=== PATIENT | male | born 1975 | race Caucasian/White ===

== ENCOUNTER 2017-12-29 14:50 | Emergency (ER) | payer MEDICAID ==
[~2017-12-29] VITALS: Ht 175.3 cm; Wt 86.2 kg
[2017-12-29 14:55] VITALS: BP_SYST 128
[2017-12-29] MEDS ORDERED: NACL 0.9% 1,000 ML IV ONE (15:08)
[2017-12-29] MEDS ORDERED: ONDANSETRON HCL 4 MG/2 ML VIAL IVP ONE (15:15)
[2017-12-29 15:57] LABS: BASOPHILS % (AUTO) 0.6 % (0.0-2.0); EOSINOPHILS # (AUTO) 0.2 K/uL (0.0-0.4); HEMATOCRIT 46.1 % (36-54); HEMOGLOBIN 16.3 g/dL (14.0-18.0); LYMPHOCYTES # (AUTO) 1.8 K/uL (1.0-5.5); LYMPHOCYTES % (AUTO) 28.2 % (20.5-51.5); MEAN CORPUSCULAR HEMOGLOBIN 30 pg (27-31); MEAN CORPUSCULAR HGB CONC 35 % (32-36); MEAN CORPUSCULAR VOLUME 85 fL (79.0-98.0); MONOCYTES # (AUTO) 0.5 K/uL (0.0-1.0); MONOCYTES % (AUTO) 8.4 % (1.7-9.3); NEUTROPHILS # (AUTO) 3.9 K/uL (1.8-7.7); NEUTROPHILS % (AUTO) 59.8 % (40.0-70.0); PLATELET COUNT (AUTO) 258 K/uL (130-430); RED BLOOD CELL COUNT(AUTO) 5.41 MIL/uL (4.2-6.2); RED CELL DISTRIBUTION WIDTH 12.5 % (9.0-15.0); WHITE BLOOD COUNT (AUTO) 6.4 K/uL (4.8-10.8)
[2017-12-29 16:10] LABS: CALCIUM 9.6 mg/dL (8.4-11.0); CREATININE 1.28 mg/dL (0.55-1.30); POTASSIUM 3.8 mmol/L (3.5-5.1)
[2017-12-29 16:14] LABS: TOTAL BILIRUBIN 0.5 mg/dL (0.0-1.0)
[2017-12-29 16:27] LABS: BILIRUBIN,URINE NEGATIVE (NEGATIVE); BLOOD, URINE NEGATIVE (NEGATIVE); CLARITY/URINE CLEAR (CLEAR); COLOR,URINE YELLOW (YELLOW); GLUCOSE,URINE NEGATIVE (NEGATIVE); KETONES,URINE TRACE (NEGATIVE); LEUKOCYTE ESTERASE ,URINE NEGATIVE (NEGATIVE); NITRITE, URINE NEGATIVE (NEGATIVE); PH,URINE 5.5 (5.0-8.0); PROTEIN URINE TRACE (NEGATIVE); UROBILINOGEN,URINE 0.2 (0.2-1.0)
[2017-12-29 16:31] LABS: PROTHROMBIN TIME 10.2 SECS (9.5-12.5)
[2017-12-29 16:39] LABS: BACTERIA,URINE FEW /HPF (None Seen); RBC,URINE 0-3 /HPF (0-3); WBC,URINE 0-3 /HPF (0-3)
[2017-12-29 16:40] LABS: CALCIUM OXALATE CRYSTALS,UR 0-10 /HPF (None Seen); MUCUS,URINE 2+ /LPF (None Seen)
[2017-12-29] MEDS ORDERED: KETOROLAC TROMETHAMINE 30 MG VIAL IVP ONE (17:15)
[2017-12-29 17:35] VITALS: BP_SYST 135
== END 2017-12-29 17:50 | disposition home or self-care (01) ==
LOC: SED 14:50
DX: K57.92 Diverticulitis of intestine, part unspecified, without perforation or abscess without bleeding (principal); R07.89 Other chest pain; G89.29 Other chronic pain; R51 Headache; Z88.6 Allergy status to analgesic agent; Z88.5 Allergy status to narcotic agent; Z90.49 Acquired absence of other specified parts of digestive tract
CPT/HCPCS: 36415; 70450; 71046; 74176; 80053; 81000; 83690; 84484; 85025; 85610; 85730; 93005; 96361; 96374; 96375; 99285; J1885; J2405; J7030

== ENCOUNTER 2018-01-21 04:35 | Emergency (ER) | payer MEDICAID ==
[~2018-01-21] VITALS: Ht 172.7 cm; Wt 108.9 kg
[2018-01-21 04:41] VITALS: BP_SYST 147
[2018-01-21] MEDS ORDERED: FAMOTIDINE 20 MG TABLET PO ONE (05:00)
[2018-01-21] MEDS ORDERED: FAMOTIDINE 20 MG TABLET ONE (05:01)
[2018-01-21 05:10] VITALS: BP_SYST 135
== END 2018-01-21 05:10 | disposition home or self-care (01) ==
LOC: SED 04:35
DX: R10.12 Left upper quadrant pain (principal); K27.9 Peptic ulcer, site unspecified, unspecified as acute or chronic, without hemorrhage or perforation; R51 Headache; Z88.6 Allergy status to analgesic agent
CPT/HCPCS: 99282

== ENCOUNTER 2018-01-26 14:00 | Emergency (ER) | payer MEDICAID ==
[~2018-01-26] VITALS: Ht 172.7 cm; Wt 93.0 kg
--- NOTE | 2018-01-26 14:13 | NUR ---
Patient to ER bed 06 to gown for evaluation. Side rails up. Report given to SELIN WOOTEN
[2018-01-26] MEDS ORDERED: NACL 0.9% 1,000 ML IV ONE (14:15)
--- NOTE | 2018-01-26 14:15 | NUR ---
Pt AAOx4 ambulated into ED c/o 03/17 abdominal pain accompanying nausea, vomiting, diarrhea x 6 days. Pt was seen in [facility] ED on Fri and Mon for similar symptoms, but has not been relieved. Pt's last meal was noodle soup for lunch yesterday, and last bowel movement was today and described as "looking like charcoal." Pain exacerbated upon movement and pressure. No deformities to site. No other injuries/complaints per pt/noted. Will continue to monitor.
[2018-01-26 14:16] VITALS: BP_SYST 135
--- NOTE | 2018-01-26 14:20 | NUR ---
ER Dr. Huddleston at bedside examining patient.
--- NOTE | 2018-01-26 14:28 | NUR ---
# 20 gauge angiocath placed to LAC. Use of asceptic technique. Opsite placed over site. Blood return noted. Blood for lab drawn from site. Flushed with 10 cc of normal saline. No evidence of infiltration noted. Patient tolerated well.
[2018-01-26] MEDS ORDERED: ONDANSETRON HCL 4 MG/2 ML VIAL IVP ONE (14:30)
[2018-01-26 14:37] LABS: BASOPHILS % (AUTO) 0.7 % (0.0-2.0); EOSINOPHILS # (AUTO) 0.1 K/uL (0.0-0.4); EOSINOPHILS % (AUTO) 2.1 % (0.0-4.0); HEMATOCRIT 46.4 % (36-54); HEMOGLOBIN 15.5 g/dL (14.0-18.0); LYMPHOCYTES # (AUTO) 2.2 K/uL (1.0-5.5); LYMPHOCYTES % (AUTO) 38.1 % (20.5-51.5); MEAN CORPUSCULAR HEMOGLOBIN 29 pg (27-31); MEAN CORPUSCULAR HGB CONC 33 % (32-36); MEAN CORPUSCULAR VOLUME 88 fL (79.0-98.0); MONOCYTES # (AUTO) 0.4 K/uL (0.0-1.0); MONOCYTES % (AUTO) 7.6 % (1.7-9.3); NEUTROPHILS % (AUTO) 51.5 % (40.0-70.0); PLATELET COUNT (AUTO) 251 K/uL (130-430); RED CELL DISTRIBUTION WIDTH 12.2 % (9.0-15.0); WHITE BLOOD COUNT (AUTO) 5.7 K/uL (4.8-10.8)
[2018-01-26 15:00] LABS: ANION GAP 3 (5-15); CALCIUM 8.5 mg/dL (8.4-11.0); CHLORIDE 105 mmol/L (98-107); CREATININE 0.99 mg/dL (0.55-1.30); GLUCOSE 91 mg/dL (70-99); POTASSIUM 3.6 mmol/L (3.5-5.1); SODIUM SERUM 140 mmol/L (136-145); UREA NITROGEN, BLOOD 13 mg/dL (8-21)
[2018-01-26 15:02] LABS: GFR AFRICAN AMERICAN 106 mL/min (>90)
[2018-01-26 15:06] LABS: ALANINE AMINOTRANSFERASE 23 U/L (12-78); ALBUMIN 3.5 g/dL (3.4-4.8); ASPARTATE AMINOTRANSFERASE 17 U/L (10-37); TOTAL BILIRUBIN 0.4 mg/dL (0.0-1.0)
[2018-01-26 15:07] LABS: ACETAMINOPHEN < 1 ug/mL (1-30); ALCOHOL, BLOOD < 3 mg/dL (<10)
[2018-01-26 15:12] LABS: BARBITURATE, URINE NEGATIVE (NEG <=200); BENZODIAZEPINE, URINE NEGATIVE (NEG <=150); CANNABINOID, URINE NEGATIVE (NEG <=50); COCAINE, URINE NEGATIVE (NEG <=150); METHAMPHETAMINES SCREEN,URINE NEGATIVE (NEG <=500); OPIATE, URINE NEGATIVE (NEG <=100); PHENCYCLIDINE SCREEN,URINE NEGATIVE (NEG <=25); UR TRICYCLIC ANTIDEPRESSANTS NEGATIVE (NEG <=300); URINE AMPHETAMINE NEGATIVE (NEG <=500); URINE METHADONE NEGATIVE (NEG <=200); URINE OXYCODONE SCREEN NEGATIVE (NEG <=100); URINE PROPOXYPHENE SCREEN NEGATIVE (NEG <=300)
--- NOTE | 2018-01-26 15:45 | NUR ---
Patient given written and verbal discharge instructions and verbalizes understanding. ER MD discussed with patient the results and treatment provided. Patient in stable condition. ID arm band removed. IV catheter removed intact and dressing applied, no active bleeding. Rx of Zofran given. Patient educated on pain management and to follow up with PMD. Pain Scale 1/10. Opportunity for questions provided and answered. Medication side effect fact sheet provided.
[2018-01-26 16:08] VITALS: BP_SYST 132
== END 2018-01-26 16:08 | disposition home or self-care (01) ==
LOC: SED 14:00
DX: K52.9 Noninfective gastroenteritis and colitis, unspecified (principal); R03.0 Elevated blood-pressure reading, without diagnosis of hypertension; Z88.6 Allergy status to analgesic agent; Z88.5 Allergy status to narcotic agent; Z90.49 Acquired absence of other specified parts of digestive tract
CPT/HCPCS: 36415; 80053; 80307; 85025; 93005; 96361; 96374; 99285; G0480; G0481; G0482; J2405; J7030

== ENCOUNTER 2018-06-30 20:20 | Emergency (ER) | payer MEDICAID ==
[~2018-06-30] VITALS: Ht 180.3 cm; Wt 93.0 kg
[2018-06-30 20:45] VITALS: BP_SYST 131
--- NOTE | 2018-06-30 20:55 | NUR ---
Patient to ER bed 8 to gown for evaluation. Side rails up.
--- NOTE | 2018-06-30 21:15 | NUR ---
Patient right upper quadrant abdominal pain. Pain of 8/10. Pain lasting for 1 week with Nausea and diarrhea. Headache for 2 weeks. Patient denies vomiting, chest pain, sob, and fever. Patient able to ambulate. States diet has been only bread and water for the past 4 days.
--- NOTE | 2018-06-30 21:41 | NUR ---
ER at bedside examining patient.
[2018-06-30] MEDS ORDERED: NACL 0.9% 1,000 ML IV ONE (21:47)
--- NOTE | 2018-06-30 21:52 | NUR ---
PT MOVED TO BED 1
--- NOTE | 2018-06-30 21:55 | NUR ---
# 22 gauge angiocath placed to left AC. Use of asceptic technique. Opsite placed over site. Blood return noted. Blood for lab drawn from site. Flushed with 10 cc of normal saline. No evidence of infiltration noted. Patient tolerated well.
[2018-06-30 21:56] LABS: BILIRUBIN,URINE NEGATIVE (NEGATIVE); BLOOD, URINE NEGATIVE (NEGATIVE); CLARITY/URINE CLEAR (CLEAR); COLOR,URINE YELLOW (YELLOW); GLUCOSE,URINE NEGATIVE (NEGATIVE); KETONES,URINE NEGATIVE (NEGATIVE); NITRITE, URINE NEGATIVE (NEGATIVE); PH,URINE 5.5 (5.0-8.0); PROTEIN URINE TRACE (NEGATIVE); UROBILINOGEN,URINE 0.2 (0.2-1.0)
[2018-06-30] MEDS ORDERED: MORPHINE 4 MG/ML INJ. SYRINGE IVP ONE (22:00)
[2018-06-30] MEDS ORDERED: ONDANSETRON HCL 4 MG/2 ML VIAL IVP ONE (22:00)
[2018-06-30 22:04] LABS: LEUKOCYTE ESTERASE ,URINE TRACE (NEGATIVE)
[2018-06-30 22:05] LABS: RBC,URINE 0-3 /HPF (0-3)
[2018-06-30 22:06] LABS: BACTERIA,URINE FEW /HPF (None Seen); CALCIUM OXALATE CRYSTALS,UR 0-10 /HPF (None Seen); MUCUS,URINE 2+ /LPF (None Seen)
[2018-06-30 22:17] LABS: EOSINOPHILS % (AUTO) 2.3 % (0.0-4.0); MONOCYTES % (AUTO) 8.4 % (1.7-9.3)
[2018-06-30 22:25] LABS: CALCIUM 9.2 mg/dL (8.4-11.0); CREATININE 0.91 mg/dL (0.55-1.30); POTASSIUM 3.6 mmol/L (3.5-5.1)
[2018-06-30 22:26] LABS: BASOPHILS # (AUTO) 0.2 K/uL (0.0-0.2); BASOPHILS % (AUTO) 2.3 % (0.0-2.0); EOSINOPHILS # (AUTO) 0.2 K/uL (0.0-0.4); HEMATOCRIT 49.6 % (36-54); HEMOGLOBIN 16.5 g/dL (14.0-18.0); LYMPHOCYTES # (AUTO) 1.9 K/uL (1.0-5.5); LYMPHOCYTES % (AUTO) 25.3 % (20.5-51.5); MEAN CORPUSCULAR HEMOGLOBIN 29 pg (27-31); MEAN CORPUSCULAR HGB CONC 33 % (32-36); MEAN CORPUSCULAR VOLUME 88 fL (79.0-98.0); MONOCYTES # (AUTO) 0.6 K/uL (0.0-1.0); NEUTROPHILS # (AUTO) 4.5 K/uL (1.8-7.7); NEUTROPHILS % (AUTO) 61.7 % (40.0-70.0); PLATELET COUNT (AUTO) 265 K/uL (130-430); PROTHROMBIN TIME 9.9 SECS (9.5-12.5); RED BLOOD CELL COUNT(AUTO) 5.67 MIL/uL (4.2-6.2); RED CELL DISTRIBUTION WIDTH 12.1 % (9.0-15.0); WHITE BLOOD COUNT (AUTO) 7.4 K/uL (4.8-10.8)
[2018-06-30 22:30] LABS: ALBUMIN 4.1 g/dL (3.4-4.8); TOTAL BILIRUBIN 0.3 mg/dL (0.0-1.0)
[2018-06-30] MEDS ORDERED: cefTRIAXone 1 GM IVPB PREMIX 50 ML IV ONE (23:45)
--- NOTE | 2018-07-01 00:10 | NUR ---
Patient to CT scan via gurney in stable condition.
[2018-07-01 02:33] VITALS: BP_SYST 128
--- NOTE | 2018-07-01 02:33 | NUR ---
Patient given written and verbal discharge instructions and verbalizes understanding. ER MD discussed with patient the results and treatment provided. Patient in stable condition. ID arm band removed. IV catheter removed intact and dressing applied, no active bleeding. Rx of Protonix 40mg tablet and norco 5/325mg given. Patient educated on pain management and to follow up with PMD. Pain Scale 1/10. Opportunity for questions provided and answered. Medication side effect fact sheet provided.
== END 2018-07-01 02:33 | disposition home or self-care (01) ==
LOC: SED 20:20
DX: K44.9 Diaphragmatic hernia without obstruction or gangrene (principal); R03.0 Elevated blood-pressure reading, without diagnosis of hypertension; Z90.49 Acquired absence of other specified parts of digestive tract; Z88.6 Allergy status to analgesic agent
CPT/HCPCS: 36415; 74176; 80053; 81000; 82150; 83690; 85025; 85610; 96361; 96365; 96375; 99284; J0696; J2270; J2405; J7030

== ENCOUNTER 2018-07-04 18:17 | Emergency (ER) | payer MEDICAID ==
[~2018-07-04] VITALS: Ht 175.3 cm; Wt 93.0 kg
[2018-07-04 18:34] VITALS: BP_SYST 132
[2018-07-04 19:18] LABS: BASOPHILS % (AUTO) 0.5 % (0.0-2.0); EOSINOPHILS # (AUTO) 0.2 K/uL (0.0-0.4); EOSINOPHILS % (AUTO) 3.7 % (0.0-4.0); HEMATOCRIT 46.1 % (36-54); HEMOGLOBIN 15.4 g/dL (14.0-18.0); LYMPHOCYTES # (AUTO) 2.3 K/uL (1.0-5.5); LYMPHOCYTES % (AUTO) 35.2 % (20.5-51.5); MEAN CORPUSCULAR HEMOGLOBIN 29 pg (27-31); MEAN CORPUSCULAR HGB CONC 34 % (32-36); MEAN CORPUSCULAR VOLUME 88 fL (79.0-98.0); MONOCYTES # (AUTO) 0.5 K/uL (0.0-1.0); MONOCYTES % (AUTO) 7.9 % (1.7-9.3); NEUTROPHILS # (AUTO) 3.4 K/uL (1.8-7.7); NEUTROPHILS % (AUTO) 52.7 % (40.0-70.0); PLATELET COUNT (AUTO) 251 K/uL (130-430); RED BLOOD CELL COUNT(AUTO) 5.26 MIL/uL (4.2-6.2); RED CELL DISTRIBUTION WIDTH 12.8 % (9.0-15.0); WHITE BLOOD COUNT (AUTO) 6.4 K/uL (4.8-10.8)
[2018-07-04 19:26] LABS: CALCIUM 9.3 mg/dL (8.4-11.0); CREATININE 0.86 mg/dL (0.55-1.30); POTASSIUM 4.3 mmol/L (3.5-5.1)
[2018-07-04 19:30] LABS: ALBUMIN 3.7 g/dL (3.4-4.8); TOTAL BILIRUBIN 0.3 mg/dL (0.0-1.0)
[2018-07-04] MEDS: NACL 0.9% 1,000 ML IV ONE (19:31)
[2018-07-04] MEDS: PANTOPRAZOLE SODIUM 40 MG/VIAL (PROTONIX) IVP ONE (19:32)
[2018-07-04] MEDS: ONDANSETRON HCL 4 MG/2 ML VIAL IVP ONE (19:53)
[2018-07-04] MEDS: FAMOTIDINE PF 20 MG/2 ML VIAL IVP ONE (19:54)
[2018-07-04 20:45] VITALS: BP_SYST 130
== END 2018-07-04 20:45 | disposition home or self-care (01) ==
LOC: SED 18:17
DX: G89.29 Other chronic pain (principal); R10.13 Epigastric pain; Z88.6 Allergy status to analgesic agent; Z90.49 Acquired absence of other specified parts of digestive tract; R03.0 Elevated blood-pressure reading, without diagnosis of hypertension
CPT/HCPCS: 36415; 80053; 83690; 85025; 96361; 96374; 96375; 99283; C9113; J2405; J3490; J7030

== ENCOUNTER 2018-07-14 15:26 | Emergency (ER) | payer MEDICAID ==
[~2018-07-14] VITALS: Ht 180.3 cm; Wt 93.0 kg
[2018-07-14 15:30] VITALS: BP_SYST 126
[2018-07-14] MEDS ORDERED: KETOROLAC TROMETHAMINE 60 MG/2 ML VIAL IM ONE (15:45)
[2018-07-14 16:18] LABS: BASOPHILS # (AUTO) 0.1 K/uL (0.0-0.2); BASOPHILS % (AUTO) 1.1 % (0.0-2.0); EOSINOPHILS # (AUTO) 0.3 K/uL (0.0-0.4); EOSINOPHILS % (AUTO) 3.8 % (0.0-4.0); HEMOGLOBIN 16.2 g/dL (14.0-18.0); LYMPHOCYTES # (AUTO) 2.6 K/uL (1.0-5.5); LYMPHOCYTES % (AUTO) 39.8 % (20.5-51.5); MEAN CORPUSCULAR HEMOGLOBIN 29 pg (27-31); MEAN CORPUSCULAR HGB CONC 32 % (32-36); MEAN CORPUSCULAR VOLUME 89 fL (79.0-98.0); MONOCYTES # (AUTO) 0.5 K/uL (0.0-1.0); MONOCYTES % (AUTO) 8.2 % (1.7-9.3); NEUTROPHILS # (AUTO) 3.1 K/uL (1.8-7.7); NEUTROPHILS % (AUTO) 47.1 % (40.0-70.0); PLATELET COUNT (AUTO) 261 K/uL (130-430); RED BLOOD CELL COUNT(AUTO) 5.61 MIL/uL (4.2-6.2); RED CELL DISTRIBUTION WIDTH 12.4 % (9.0-15.0); WHITE BLOOD COUNT (AUTO) 6.6 K/uL (4.8-10.8)
[2018-07-14 16:20] LABS: CALCIUM 9.1 mg/dL (8.4-11.0); CREATININE 0.97 mg/dL (0.55-1.30)
[2018-07-14 16:25] LABS: ALBUMIN 3.9 g/dL (3.4-4.8); PROTHROMBIN TIME 10.1 SECS (9.5-12.5); TOTAL BILIRUBIN 0.3 mg/dL (0.0-1.0)
[2018-07-14 17:10] VITALS: BP_SYST 126
== END 2018-07-14 17:10 | disposition home or self-care (01) ==
LOC: SED 15:26
DX: R10.13 Epigastric pain (principal); R10.11 Right upper quadrant pain; Z90.49 Acquired absence of other specified parts of digestive tract; Z88.6 Allergy status to analgesic agent
CPT/HCPCS: 36415; 74018; 80053; 82150; 83615; 83690; 85025; 85610; 85730; 96372; 99284; J1885

== ENCOUNTER 2021-05-08 15:11 | Emergency (ER) | payer MEDICAID ==
[~2021-05-08] VITALS: Ht 172.7 cm; Wt 83.9 kg
[2021-05-08 15:30] VITALS: BP_SYST 135
--- NOTE | 2021-05-08 15:30 | NUR ---
Pt to [facility] for evaluation. Report given to SUGAR Scales who will assume care.
--- NOTE | 2021-05-08 15:40 | NUR ---
Pt presents to ed for note to return to work after having back pain. pt states his work is requesting a note before he returns. No pain noted.
--- NOTE | 2021-05-08 16:00 | NUR ---
Ivette hebert in ED - 05/08/21 at 1607 by SDEDHD SHANIQUA Ayala at bedside examining patient.
--- NOTE | 2021-05-08 16:00 | NUR ---
SHANIQUA Navas at bedside examining patient.
[2021-05-08 16:49] VITALS: BP_SYST 135
--- NOTE | 2021-05-08 16:55 | NUR ---
Patient given written and verbal discharge instructions and verbalizes understanding. ER MD discussed with patient the results and treatment provided. Patient in stable condition. ID arm band removed. IV catheter removed intact and dressing applied, no active bleeding. Patient educated on pain management and to follow up with PMD. Pain Scale 0. Opportunity for questions provided and answered. Medication side effect fact sheet provided.
== END 2021-05-08 16:55 | disposition home or self-care (01) ==
LOC: SED 15:11
DX: Z02.79 Encounter for issue of other medical certificate (principal); K21.9 Gastro-esophageal reflux disease without esophagitis; Z88.8 Allergy status to other drugs, medicaments and biological substances; Z88.5 Allergy status to narcotic agent
CPT/HCPCS: 99281

== ENCOUNTER 2021-07-01 10:56 | Emergency (ER) | payer MEDICAID, SELFPAY ==
[~2021-07-01] VITALS: Ht 177.8 cm; Wt 81.6 kg
[2021-07-01 10:56] VITALS: BP_SYST 124
== END 2021-07-01 12:32 | disposition home or self-care (01) ==
LOC: SED 10:56
DX: B34.9 Viral infection, unspecified (principal); Z20.822 Contact with and (suspected) exposure to COVID-19; Z88.8 Allergy status to other drugs, medicaments and biological substances
CPT/HCPCS: 99281

== ENCOUNTER 2021-08-07 12:03 | Emergency (ER) | payer MEDICAID, SELFPAY ==
[~2021-08-07] VITALS: Ht 172.7 cm; Wt 81.6 kg
[2021-08-07 12:15] VITALS: BP_SYST 120
[2021-08-07] MEDS ORDERED: IBUPROFEN 800 MG TABLET PO ONE (12:45)
[2021-08-07 12:48] VITALS: BP_SYST 120
== END 2021-08-07 12:48 | disposition home or self-care (01) ==
LOC: SED 12:03
DX: B34.9 Viral infection, unspecified (principal); Z88.6 Allergy status to analgesic agent
CPT/HCPCS: 99283; U0003; C9803

== ENCOUNTER 2021-08-15 11:34 | Emergency (ER) | payer MEDICAID, SELFPAY ==
[~2021-08-15] VITALS: Ht 172.7 cm; Wt 86.2 kg
--- NOTE | 2021-08-15 11:40 | NUR ---
Pt placed in the tent
[2021-08-15 11:51] VITALS: BP_SYST 134
--- NOTE | 2021-08-15 11:56 | NUR ---
Pt brought by self, A&Ox4, pt presents to ER with cough/congestion/ headache, skin pink and warm, cap refill <3, VSS, respirations even and unlabored.
--- NOTE | 2021-08-15 12:18 | NUR ---
Dr Granados evaluating patient at bedside
[2021-08-15 12:35] VITALS: BP_SYST 134
--- NOTE | 2021-08-15 12:36 | NUR ---
Patient given written and verbal discharge instructions and verbalizes understanding. ER MD discussed with patient the results and treatment provided. Patient in stable condition. ID arm band removed. Rx of none given. Patient educated on pain management and to follow up with PMD. Pain Scale 0/10 Opportunity for questions provided and answered. Medication side effect fact sheet provided.
== END 2021-08-15 12:35 | disposition home or self-care (01) ==
LOC: SED 11:34
DX: Z02.79 Encounter for issue of other medical certificate (principal); Z79.899 Other long term (current) drug therapy
CPT/HCPCS: 99281

== ENCOUNTER 2021-08-19 10:32 | Emergency (ER) | payer MEDICAID, SELFPAY ==
[~2021-08-19] VITALS: Ht 172.7 cm; Wt 81.6 kg
[2021-08-19 10:40] VITALS: BP_SYST 111
--- NOTE | 2021-08-19 10:40 | NUR ---
pt. came in with concerns of new onset DE OLIVEIRA, sorethroat, cough, and nausea starting this morning
--- NOTE | 2021-08-19 10:47 | NUR ---
ER in tent examining patient.
--- NOTE | 2021-08-19 11:07 | NUR ---
Patient given written and verbal discharge instructions and verbalizes understanding. ER Dr. Espinoza discussed with patient the results and treatment provided. Patient in stable condition. ID arm band removed. Patient educated on pain management and to follow up with PMD. Pain Scale 3, will take motrin at home if needs. Opportunity for questions provided and answered.
[2021-08-19 11:08] VITALS: BP_SYST 112
== END 2021-08-19 11:07 | disposition home or self-care (01) ==
LOC: SED 10:32
DX: J06.9 Acute upper respiratory infection, unspecified (principal); Z79.899 Other long term (current) drug therapy; Z88.5 Allergy status to narcotic agent; Z20.822 Contact with and (suspected) exposure to COVID-19
CPT/HCPCS: 99283; C9803; U0003

== ENCOUNTER 2022-12-20 08:29 | Emergency (ER) | payer MEDICAID ==
[~2022-12-20] VITALS: Ht 180.3 cm; Wt 81.6 kg
[2022-12-20 08:34] VITALS: BP_SYST 137
[2022-12-20 08:56] LABS: BILIRUBIN,URINE NEGATIVE (NEGATIVE); BLOOD, URINE 3+ (NEGATIVE); CLARITY/URINE CLEAR (CLEAR); COLOR,URINE YELLOW (YELLOW); GLUCOSE,URINE NEGATIVE (NEGATIVE); KETONES,URINE NEGATIVE (NEGATIVE); LEUKOCYTE ESTERASE ,URINE NEGATIVE (NEGATIVE); NITRITE, URINE NEGATIVE (NEGATIVE); PROTEIN URINE 1+ (NEGATIVE); UROBILINOGEN,URINE 0.2 (0.2-1.0)
[2022-12-20] MEDS ORDERED: ONDANSETRON HCL 4 MG/2 ML VIAL IVP ONE ×2 (09:00→09:30)
[2022-12-20] MEDS ORDERED: KETOROLAC TROMETHAMINE 30 MG VIAL IVP ONE (09:00)
[2022-12-20] MEDS ORDERED: NACL 0.9% 1,000 ML IV ONE ×3 (09:00→12:00)
[2022-12-20 09:11] LABS: BASOPHILS # (AUTO) 0.1 K/uL (0.0-0.2); BASOPHILS % (AUTO) 0.9 % (0.0-2.0); EOSINOPHILS # (AUTO) 0.1 K/uL (0.0-0.4); EOSINOPHILS % (AUTO) 2.2 % (0.0-4.0); HEMATOCRIT 45.8 % (36-54); HEMOGLOBIN 15.6 g/dL (14.0-18.0); LYMPHOCYTES # (AUTO) 2.7 K/uL (1.0-5.5); MEAN CORPUSCULAR HEMOGLOBIN 30 pg (27-31); MEAN CORPUSCULAR HGB CONC 34 % (32-36); MEAN CORPUSCULAR VOLUME 87 fL (79.0-98.0); MONOCYTES # (AUTO) 0.4 K/uL (0.0-1.0); MONOCYTES % (AUTO) 6.8 % (1.7-9.3); NEUTROPHILS # (AUTO) 2.7 K/uL (1.8-7.7); NEUTROPHILS % (AUTO) 45.1 % (40.0-70.0); PLATELET COUNT (AUTO) 246 K/uL (130-430); RED BLOOD CELL COUNT(AUTO) 5.25 MIL/uL (4.2-6.2); RED CELL DISTRIBUTION WIDTH 13.1 % (9.0-15.0); WHITE BLOOD COUNT (AUTO) 6.1 K/uL (4.8-10.8)
[2022-12-20 09:17] LABS: BACTERIA,URINE None Seen /HPF (None Seen); RBC,URINE 50-80 /HPF (0-3); WBC,URINE 0-3 /HPF (0-3)
[2022-12-20 09:18] LABS: MUCUS,URINE 1+ /LPF (None Seen)
[2022-12-20 09:20] LABS: BARBITURATE, URINE NEGATIVE (NEG <=200); URINE AMPHETAMINE NEGATIVE (NEG <=500)
[2022-12-20 09:21] LABS: CALCIUM 8.4 mg/dL (8.4-11.0); CREATININE 1.17 mg/dL (0.55-1.30)
[2022-12-20 09:21] LABS: BENZODIAZEPINE, URINE NEGATIVE (NEG <=150); CANNABINOID, URINE NEGATIVE (NEG <=50); COCAINE, URINE NEGATIVE (NEG <=150); METHAMPHETAMINES SCREEN,URINE NEGATIVE (NEG <=500); OPIATE, URINE NEGATIVE (NEG <=100); PHENCYCLIDINE SCREEN,URINE NEGATIVE (NEG <=25); URINE METHADONE NEGATIVE (NEG <=200); URINE OXYCODONE SCREEN NEGATIVE (NEG <=100); URINE PROPOXYPHENE SCREEN NEGATIVE (NEG <=300)
[2022-12-20 09:22] LABS: UR TRICYCLIC ANTIDEPRESSANTS NEGATIVE (NEG <=300)
[2022-12-20 09:25] LABS: ALBUMIN 3.9 g/dL (3.4-4.8); TOTAL BILIRUBIN 0.5 mg/dL (0.0-1.0)
[2022-12-20] MEDS ORDERED: MORPHINE 4 MG INJ. 4 MG/ML VIAL IVP ONE ×2 (09:30→10:00)
[2022-12-20] MEDS ORDERED: DIPHENHYDRAMINE INJ 50 MG/ML VIAL IVP ONE (10:00)
[2022-12-20] MEDS ORDERED: METOCLOPRAMIDE HCL 10 MG/2 ML VIAL IVP ONE (10:00)
[2022-12-20] MEDS ORDERED: CEPH-548 PO (11:57)
[2022-12-20] MEDS ORDERED: TAMS0.4C96 PO (11:57)
[2022-12-20] MEDS ORDERED: IBUP-1970 PO (12:00)
[2022-12-20] MEDS ORDERED: TAMSULOSIN HCL 0.4 MG CAP PO ONE (12:00)
[2022-12-20] MEDS ORDERED: fentaNYL CITRATE/PF 100 MCG/2 ML AMP IVP ONE (12:00)
[2022-12-20] MEDS ORDERED: HYDR-3917 PO (12:00)
[2022-12-20] MEDS ORDERED: cefTRIAXone 1 GM IVPB PREMIX 50 ML IV ONE (12:00)
[2022-12-20] MEDS ORDERED: TAMSULOSIN HCL 0.4 MG CAP PO SCH (12:00)
[2022-12-20 14:27] VITALS: BP_SYST 104
[2022-12-21] MEDS ORDERED: TAMSULOSIN HCL 0.4 MG CAP PO SCH (09:00)
== END 2022-12-20 14:28 | disposition home or self-care (01) ==
LOC: SED 08:29
DX: N20.1 Calculus of ureter (principal); R31.9 Hematuria, unspecified; I10 Essential (primary) hypertension; K86.9 Disease of pancreas, unspecified; N40.1 Benign prostatic hyperplasia with lower urinary tract symptoms; R11.0 Nausea; Z88.6 Allergy status to analgesic agent; Z79.899 Other long term (current) drug therapy
CPT/HCPCS: 99285; 96375; 74176; 96365; 96361; 80307; 80053; 83690; 85025; 87040; 87086; 36415; 76376; 83605; 81000; J0696; J1200; J1885; J2765; J2405; J3010; J2270; J7030

== ENCOUNTER 2023-02-20 16:42 | Emergency (ER) | payer MEDICAID ==
[~2023-02-20] VITALS: Ht 162.6 cm; Wt 83.9 kg
[~2023-02-20 16:42] MED LIST: HYDR-3917 PO; IBUP-1970 PO; TAMS0.4C96 PO
--- NOTE | 2023-02-20 16:49 | NUR ---
Patient to ER bed 03 to gown for evaluation. Side rails up.
--- NOTE | 2023-02-20 16:49 | NUR ---
RECEIVED PT AND FROM SUGAR HINDS. ASSUMED CARE.
[2023-02-20 16:50] VITALS: BP_SYST 128; PULSE 85; RESP 22; TEMP 98.3; O2SAT 98
--- NOTE | 2023-02-20 16:50 | NUR ---
DR. GARCIA AT BEDSIDE TO ASSESS PT.
[2023-02-20] MEDS ORDERED: IBUP-1971 PO (16:58)
[2023-02-20] MEDS ORDERED: TRAM50TA2 PO (16:58)
[2023-02-20] MEDS ORDERED: DIPHTH,PERTUSS(ACELL),TET VAC 0.5 ML VIAL (Tdap) I.M. ONE (17:00)
[2023-02-20] MEDS ORDERED: SILVER SULFADIAZINE 1%, 25 GM TOPICAL CREAM (SSD) TP ONE (17:00)
[2023-02-20] MEDS ORDERED: MORPHINE 4 MG INJ. 4 MG/ML VIAL IVP ONE (17:00)
--- NOTE | 2023-02-20 17:29 | NUR ---
TDAP IM GIVEN.
[2023-02-20] MEDS ORDERED: MORPHINE 4 MG INJ. 4 MG/ML VIAL IM ONE (17:30)
--- NOTE | 2023-02-20 17:50 | NUR ---
SILVER SULFA CREAM APPLIED TO WOUND AND DRESSING APPLIED.
[2023-02-20 18:34] VITALS: BP_SYST 128; PULSE 85; RESP 22; TEMP 98.3; O2SAT 98
--- NOTE | 2023-02-20 18:34 | NUR ---
Patient given written and verbal discharge instructions and verbalizes understanding. ER MD discussed with patient the results and treatment provided. Patient in stable condition. ID arm band removed. Rx of given. Patient educated on pain management and to follow up with PMD. Pain Scale 4/10. Opportunity for questions provided and answered. Medication side effect fact sheet provided.
== END 2023-02-20 18:34 | disposition home or self-care (01) ==
LOC: SED 16:42
DX: T23.202A Burn of second degree of left hand, unspecified site, initial encounter (principal); Z88.6 Allergy status to analgesic agent; Z79.899 Other long term (current) drug therapy; X08.8XXA Exposure to other specified smoke, fire and flames, initial encounter; Y93.89 Activity, other specified; Y92.89 Other specified places as the place of occurrence of the external cause; Y99.8 Other external cause status
CPT/HCPCS: 99284; 90715; 96372; 90471; 16020; J2270

== ENCOUNTER 2023-11-24 16:18 | Emergency (ER) | payer MEDICAID, OTHER ==
[~2023-11-24] VITALS: Ht 175.3 cm; Wt 81.6 kg
[~2023-11-24 16:18] MED LIST changes: +IBUP-1971 PO; +TRAM50TA2 PO
[2023-11-24 16:45] VITALS: BP_SYST 119; PULSE 71; RESP 19; TEMP 97.8; O2SAT 97
[2023-11-24 18:08] LABS: BILIRUBIN,URINE NEGATIVE (NEGATIVE); BLOOD, URINE NEGATIVE (NEGATIVE); COLOR,URINE YELLOW (YELLOW); GLUCOSE,URINE NEGATIVE (NEGATIVE); KETONES,URINE NEGATIVE (NEGATIVE); NITRITE, URINE NEGATIVE (NEGATIVE); PH,URINE 7.5 (5.0-8.0); PROTEIN URINE NEGATIVE (NEGATIVE); UROBILINOGEN,URINE 0.2 (0.2-1.0)
[2023-11-24 18:25] LABS: CLARITY/URINE SLIGHTLY HAZY (CLEAR)
[2023-11-24 18:44] LABS: BASOPHILS # (AUTO) 0.1 K/uL (0.0-0.2); BASOPHILS % (AUTO) 0.7 % (0.0-2.0); EOSINOPHILS # (AUTO) 0.1 K/uL (0.0-0.4); EOSINOPHILS % (AUTO) 1.1 % (0.0-4.0); HEMATOCRIT 45.6 % (36-54); HEMOGLOBIN 15.7 g/dL (14.0-18.0); LYMPHOCYTES % (AUTO) 23.4 % (20.5-51.5); MEAN CORPUSCULAR HEMOGLOBIN 30 pg (27-31); MEAN CORPUSCULAR HGB CONC 34 % (32-36); MEAN CORPUSCULAR VOLUME 86 fL (79.0-98.0); MONOCYTES # (AUTO) 0.5 K/uL (0.0-1.0); MONOCYTES % (AUTO) 5.9 % (1.7-9.3); NEUTROPHILS # (AUTO) 5.8 K/uL (1.8-7.7); NEUTROPHILS % (AUTO) 68.9 % (40.0-70.0); PLATELET COUNT (AUTO) 308 K/uL (130-430); RED BLOOD CELL COUNT(AUTO) 5.32 MIL/uL (4.2-6.2); RED CELL DISTRIBUTION WIDTH 13.7 % (9.0-15.0); WHITE BLOOD COUNT (AUTO) 8.4 K/uL (4.8-10.8)
[2023-11-24 19:05] LABS: CALCIUM 9.4 mg/dL (8.4-11.0); CREATININE 1.02 mg/dL (0.55-1.30); POTASSIUM 4.7 mmol/L (3.5-5.1)
[2023-11-24 19:24] LABS: LEUKOCYTE ESTERASE ,URINE 1+ (NEGATIVE)
[2023-11-24 19:33] LABS: BACTERIA,URINE FEW /HPF (None Seen); MUCUS,URINE 1+ /LPF (None Seen); RBC,URINE 0-3 /HPF (0-3); WBC,URINE 50-80 /HPF (0-3)
[2023-11-24] MEDS: cefTRIAXone 1 GM in LIDOCAINE 1%, 20 ML MDV 2.1 ML IM ONE (20:21)
[2023-11-24] MEDS ORDERED: TRAM50TA2 PO (21:16)
[2023-11-24] MEDS ORDERED: IBUP-1969 PO (21:16)
[2023-11-24] MEDS ORDERED: CEPH-548 PO (21:16)
[2023-11-24 21:36] VITALS: BP_SYST 120; PULSE 70; RESP 17; TEMP 97.9; O2SAT 98
== END 2023-11-24 21:36 | disposition home or self-care (01) ==
LOC: SED 16:18
DX: N39.0 Urinary tract infection, site not specified (principal); N20.0 Calculus of kidney; Z88.6 Allergy status to analgesic agent
CPT/HCPCS: 99285; 74176; 80048; 81000; 81001; 85025; 87086; 87186; 36415; 96372; 87491; 81003; 81015; J0696; J2001